=== PATIENT | male | born 1995 ===

== ENCOUNTER 2018-08-29 00:47 | Emergency (ER) | payer OTHER ==
[2018-08-29 01:08] VITALS: RESP 17
--- NOTE | 2018-08-29 01:15 | ED PDOC ---
Arrival/HPI - General Chief Complaint: ENT Problem Time Seen by Provider: 08/29/18 00:50 Historian: Patient - History of Present Illness Narrative History of Present Illness (Text): 08/29/18 01:12 22yo male with no pmhx who present with complaint of sore throat x 3days. States the pain improved on Friday and then started again on . Reports odynophagia. Denies dysphagia, fever, chills, nausea, abdominal pain, sick co ntact, any other complaint. Past Medical History - Provider Review Nursing Documentation Reviewed: Yes - Infectious Disease Hx of Infectious Diseases: None - Cardiac Hx Cardiac Disorders: No - Pulmonary Hx Respiratory Disorders: No - Psychiatric Hx Substance Use: No Family/Social History - Physician Review Nursing Documentation Reviewed: Yes Family/Social History: Unknown Family HX Smoking Status: Current Some Days Smoker Hx Alcohol Use: Yes Frequency of alcohol use: Socially Hx Substance Use: No Allergies/Home Meds Allergies/Adverse Reactions: Allergies No Known Allergies Allergy (Verified 08/29/18 00:55) Review of Systems - Physician Review All systems were reviewed & negative as marked: Yes - Review of Systems Constitutional: Normal Eyes: Normal ENT: Sore Throat Respiratory: Normal Cardiovascular: Normal Gastrointestinal: Normal Genitourinary Male: Normal Musculoskeletal: Normal Skin: Normal Neurological: Normal Endocrine: Normal Hemo/Lymphatic: Normal Psychiatric: Normal Physical Exam Vital Signs Reviewed: Yes Vital Signs Temp Pulse Resp BP Pulse Ox 08/29/18 01:07 99.4 F 64 17 117/64 99 Temperature: Afebrile Blood Pressure: Normal Pulse: Regular Respiratory Rate: Normal Appearance: Positive for: Well-Appearing, Non-Toxic, Comfortable Pain Distress: None Mental Status: Positive for: Alert and Oriented X 3 - Systems Exam Head: Present: Atraumatic, Normocephalic Pupils: Present: PERRL Extroacular Muscles: Present: EOMI Conjunctiva: Present: Normal Mouth: Present: Moist Mucous Membranes Pharnyx: Present: ERYTHEMA, Peritonsilar Swelling (worse on the left). No: EXUDATE, TONSILS ENLARGED, Uvular Deviation, Muffled/Hoarse Voice, Strider Neck: Present: Normal Range of Motion Respiratory/Chest: Present: Clear to Auscultation, Good Air Exchange. No: Respiratory Distress, Accessory Muscle Use Cardiovascular: Present: Regular Rate and Rhythm, Normal S1, S2. No: Murmurs Abdomen: No: Tenderness, Distention, Peritoneal Signs Back: Present: Normal Inspection Upper Extremity: Present: Normal Inspection. No: Cyanosis, Edema Lower Extremity: Present: Normal Inspection. No: Edema Neurological: Present: GCS=15, CN II-XII Intact, Speech Normal Skin: Present: Warm, Dry, Normal Color. No: Rashes Lymphatic: Present: Other (Left submandibular node tender and palpable) Psychiatric: Present: Alert, Oriented x 3, Normal Insight, Normal Concentration Medical Decision Making ED Course and Treatment: 08/29/18 01:18 Pt in ED for sore throat. He denied dysphagia. he was controlling his secretions. He have tonsillitis. Decadron and penicillin ordered Pt DC home with penicillin. Referred to his PMd. TRT ED for worsening symptoms. Disposition/Present on Arrival - Present on Arrival Any Indicators Present on Arrival: No History of DVT/PE: No History of Uncontrolled Diabetes: No Urinary Catheter: No History of Decub. Ulcer: No History Surgical Site Infection Following: None - Disposition Have Diagnosis and Disposition been Completed?: Yes Diagnosis: Acute tonsillitis, Lymphadenopathy Disposition: HOME/ ROUTINE Disposition Time: :20 Patient Plan: Discharge Condition: STABLE Discharge Instructions (ExitCare): Sore Throat, Adult (DC) Additional Instructions: Drink plenty of fluid and rest Follow up with your doctor Return to ED for worsening symptoms Prescriptions: Penicillin VK [Penicillin VK Tab] 500 mg PO BID #14 tab Referrals: Cherelle Friedman MD [Medical Doctor] - Follow up with primary Forms: [employer] (Persian)
[2018-08-29 02:04] VITALS: BP 112/71; PULSE 68; TEMP 99.2; O2SAT 98
== END 2018-08-29 02:03 | disposition home or self-care (01) ==
LOC: MERGE 00:47 → ED 00:47
DX: J03.90 Acute tonsillitis, unspecified (principal); R59.1 Generalized enlarged lymph nodes
CPT/HCPCS: 96372; 99283; J1100